=== PATIENT | male | born 1955 | race Caucasian/White ===

== ENCOUNTER 2018-01-25 10:00 | Emergency (ER) | payer MEDICARE, MEDICAID ==
[~2018-01-25] VITALS: Ht 177.8 cm; Wt 131.0 kg
[2018-01-25 10:00] VITALS: BP 128/66; PULSE 93; RESP 16; TEMP 97.8; O2SAT 96
[2018-01-25 10:22] LABS: BILIRUBIN, URINE NEG (NEG); BLOOD, URINE MOD (NEG); GLUCOSE,URINE NEG (NEG); KETONE, URINE NEG (NEG); NITRITE,URINE NEG (NEG); PH, URINE 5.5 (5.0-8.5); URINE COLOR YELLOW (YELLW/STRAW); URINE LEUKOCYTE ESTERASE TRACE (NEG)
[2018-01-25 10:28] LABS: AMORPHOUS SEDIMENT, URINE FEW; SQUAMOUS EPITHELIAL CELL URINE 0-5 /hpf (0-5); WBC, URINE 0-2 /hpf (0-5)
[2018-01-25] MEDS ORDERED: SODIUM CHLORIDE 0.9% FLUSH 10 ML FLUSH IV FLUSH PRN (10:30)
[2018-01-25] MEDS ORDERED: LOMO2.5T PO (10:33)
[2018-01-25] MEDS ORDERED: RANI300C PO (10:33)
[2018-01-25] MEDS ORDERED: CYCL10TA PO (10:33)
[2018-01-25] MEDS ORDERED: HYDR-3583 PO (10:33)
[2018-01-25] MEDS ORDERED: OMEP40CA2 (10:33)
[2018-01-25] MEDS ORDERED: DULO1CAP3 PO (10:33)
[2018-01-25] MEDS ORDERED: LISI-515 PO (10:33)
[2018-01-25] MEDS ORDERED: BUPR300T PO (10:33)
[2018-01-25] MEDS ORDERED: NITR0.4S SL (10:33)
[2018-01-25] MEDS ORDERED: ABIL10TA8 PO (10:33)
[2018-01-25] MEDS ORDERED: GABA300C5 PO (10:33)
[2018-01-25] MEDS ORDERED: RANI300T PO (10:33)
[2018-01-25 10:54] VITALS: O2SAT 98
[2018-01-25 11:15] LABS: CALCIUM 8.6 MG/DL (8.5-10.1)
[2018-01-25 11:17] LABS: PROTHROMBIN TIME - PATIENT 10.1 SEC (9.8-11.6)
[2018-01-25 11:19] LABS: CREATININE 1.1 MG/DL (0.60-1.30)
--- NOTE | 2018-01-25 11:20 | RADRPT ---
EXAM DATE/TIME: 01/25/2018 10:36 [facility] COMPARISON: No previous studies available for comparison. INDICATIONS : Urinary urgency, incontinence, hematuria. ORAL CONTRAST: No oral contrast ingested. RADIATION DOSE: 30.79 CTDIvol (mGy) ; Patient body habitus MEDICAL HISTORY : Gastric bypass x 2 SURGICAL HISTORY : Lumbar, and orthopedic ENCOUNTER: Initial ACUITY: 2 days PAIN SCALE: 3/10 LOCATION: abdomen TECHNIQUE: Volumetric scanning of the abdomen and pelvis was performed. Using automated exposure control and ad justment of the mA and/or kV according to patient size, radiation dose was kept as low as reasonably achievable to obtain optimal diagnostic quality images. DICOM format image data is available electro nically for review and comparison. FINDINGS: LOWER LUNGS: The visualized lower lungs are clear. LIVER: Homogeneous density without lesion. There is no dilation of the biliary tree. No calcified gallston es. SPLEEN: Normal size without lesion. PANCREAS: Within normal limits. KIDNEYS: Normal in size and shape. There is no mass, stone, or hydronephrosis. ADRENAL GLANDS: Within normal limits. VASCULAR: There is no aortic aneurysm. BOWEL/MESENTERY: Post surgical clips are identified in the left upper quadrant of the abdomen in the gastric region. I ntestinal structures are otherwise unremarkable. There is no evidence of ileus or acute inflammatory changes. ABDOMINAL WALL: Within normal limits. RETROPERITONEUM: There is no lymphadenopathy. BLADDER: No wall thickening or mass. REPRODUCTIVE: Within normal limits. INGUINAL: There is no lymphadenopathy or hernia. MUSCULOSKELETAL: Post surgical changes following lower lumbar fusion are noted. CONCLUSION: 1. No evidence of nephrolithiasis or obstructive uropathy. 2. No evidence of suspicious renal masses. 3. Postsurgical changes in the left upper quadrant of the abdomen and following lumbar fusion. Karl Dominguez MD on January 25, 2018 at 11:14 Board Certified Radiologist. This report was verified electronically.
[2018-01-25 11:56] LABS: AUTOMATED NEUTROPHIL # 3.4 TH/MM3 (1.8-7.7); BASOPHIL # 0.1 TH/MM3 (0-0.2); BASOPHIL % 0.9 % (0.0-2.0); EOSINOPHIL # 0.2 TH/MM3 (0-0.4); EOSINOPHIL % 3.2 % (0.0-4.0); HEMATOCRIT 39.7 % (39.0-51.0); LYMPH % 31.1 % (9.0-44.0); LYMPHOCYTE # 1.9 TH/MM3 (1.0-4.8); MEAN CELL VOLUME 79.3 FL (80.0-100.0); MEAN CORPUSCULAR HEMOGLOBIN 25.9 PG (27.0-34.0); MEAN CORPUSCULAR HGB CONC 32.7 % (32.0-36.0); MONO % 7.4 % (0.0-8.0); MONOCYTE # 0.4 TH/MM3 (0-0.9); NEUT % 57.4 % (16.0-70.0); PLATELET COUNT 227 TH/MM3 (150-450); RED BLOOD COUNT 5.01 MIL/MM3 (4.50-5.90); RED CELL DISTRIBUTION WIDTH 15.1 % (11.6-17.2)
--- NOTE | 2018-01-25 12:12 | PD ---
HPI Chief Complaint: Complaint Time Seen by Provider: 10:29 Travel History International Travel<30 days: No Contact w/Intl Traveler<30days: No Traveled to known affect area: No History of Present Illness HPI 62-year-old male complains of hematuria. He denies symptoms consistent with acute anemia. He denies similar prior episodes. He traveled down to [place] for bike week, 21 hours total and had a fair amount of back pain on the way however blamed the car ride as the cause. Duration has been about 2 days. He denies flank pain at the time of ER evaluation. No dysuria reported. No fever nausea vomiting. No numbness tingling or weakening. PFSH Social History Tobacco Use: No (REPORTS CIGARS OCCASIONALLY) Allergies-Medications (Allergen,Severity, Reaction): Coded Allergies: Penicillins (Verified Allergy, Unknown, 01/25/18) codeine (Verified Allergy, Unknown, 01/25/18) morphine (Verified Allergy, Unknown, 01/25/18) Reported Meds & Prescriptions Reported Meds & Active Scripts Active Reported Hydrocodone-Acetaminophen 10-325 mg Tab 1 Tab PO Q4H PRN Abilify (Aripiprazole) 10 Mg Tab 5 Mg PO DAILY Omeprazole 40 Mg Cap 40 Mg BID Lomotil (Diphenoxylate-Atropine) 2.5-0.025 Mg Tab 1 Tab PO Q6H PRN Bupropion HCl ER 24 HR (Bupropion HCl) 300 Mg Tab 300 Mg PO DAILY Ranitidine (Ranitidine HCl) 300 Mg Tab 300 Mg PO HS Ranitidine (Ranitidine HCl) 300 Mg Cap 300 Mg PO DAILY Lisinopril 20 Mg Tab 20 Mg PO BID Duloxetine DR (Duloxetine HCl) 60 Mg Capdr 60 Mg PO BID Gabapentin 300 Mg Cap 300 Mg PO TID Nitrostat SL (Nitroglycerin) 0.4 Mg Subl 0.4 Mg SL DIRECTED PRN 1 tablet under the tongue as needed for chest pain. Repeat every 5 minutes for a total of 3 DOSES or call 911 if NO relief. Flexeril (Cyclobenzaprine HCl) 10 Mg Tab 10 Mg PO BID Review of Systems Except as stated in HPI: all other systems reviewed are Neg General / Constitutional: No: Fever Physical Exam Narrative GENERAL: 62-year-old male pleasant well-nourished well-developed GENITOURINARY: Glands and foreskin appear normal. Vital Signs Date Time Temp Pulse Resp B/P (MAP) Pulse Ox O2 Delivery O2 Flow Rate FiO2 01/25/18 10:54 98 Room Air 01/25/18 10:00 97.8 93 16 128/66 (86) 96 SKIN: Warm and dry. HEAD: Atraumatic. Normocephalic. EYES: Pupils equal and round. No scleral icterus. No injection or drainage. ENT: No nasal bleeding or discharge. Mucous membranes pink and moist. NECK: Trachea midline. No JVD. CARDIOVASCULAR: Regular rate and rhythm. RESPIRATORY: No accessory muscle use. Clear to auscultation. Breath sounds equal bilaterally. GASTROINTESTINAL: No flank tenderness percussion. Abdomen soft. MUSCULOSKELETAL: Extremities without clubbing, cyanosis, or edema. No obvious deformities. NEUROLOGICAL: Awake and alert. No obvious cranial nerve deficits. Motor grossly within normal limits. Five out of 5 muscle strength in the arms and legs. Normal speech. PSYCHIATRIC: Appropriate mood and affect; insight and judgment normal. Data Data Last Documented VS Vital Signs Date Time Temp Pulse Resp B/P (MAP) Pulse Ox O2 Delivery O2 Flow Rate FiO2 01/25/18 10:54 98 Room Air 01/25/18 10:00 97.8 93 16 128/66 (86) Vital signs reviewed Orders Orders Urinalysis - C+S If Indicated (01/25/18 10:02) Basic Metabolic Panel (Bmp) (01/25/18 10:29) Complete Blood Count With Diff (01/25/18 10:29) Prothrombin Time / Inr (Pt) (01/25/18 10:29) Act Partial Throm Time (Ptt) (01/25/18 10:29) Iv Access Insert/Monitor (01/25/18 10:29) Ecg Monitoring (01/25/18 10:29) Oximetry (01/25/18 10:29) Sodium Chloride 0.9% Flush (Ns Flush) (01/25/18 10:30) Ct Abd/Pel W/O Iv Contrast (01/25/18 10:29) Ed Discharge Order (01/25/18 12:06) Labs Laboratory Tests Test 01/25/18 10:15 01/25/18 10:54 Urine Collection Type CLEAN CATCH Urine Color YELLOW Urine Turbidity CLEAR Urine pH 5.5 Urine Specific [place] LESS/EQUAL 1.005 Urine Protein NEG mg/dL Urine Glucose (UA) NEG mg/dL Urine Ketones NEG mg/dL Urine Occult Blood MOD Urine Nitrite NEG Urine Bilirubin NEG Urine Urobilinogen 0.2 MG/DL Urine Leukocyte Esterase TRACE Urine RBC 4-9 /hpf Urine WBC 0-2 /hpf Urine Squamous Epithelial Cells 0-5 /hpf Urine Amorphous Sediment FEW Microscopic Urinalysis Comment CULT NOT INDICATED Urine Collection Time 1015 White Blood Count 6.0 TH/MM3 Red Blood Count 5.01 MIL/MM3 Hemoglobin 13.0 GM/DL Hematocrit 39.7 % Mean Corpuscular Volume 79.3 FL Mean Corpuscular Hemoglobin 25.9 PG Mean Corpuscular Hemoglobin Concent 32.7 % Red Cell Distribution Width 15.1 % Platelet Count 227 TH/MM3 Mean Platelet Volume 9.0 FL Neutrophils (%) (Auto) 57.4 % Lymphocytes (%) (Auto) 31.1 % Monocytes (%) (Auto) 7.4 % Eosinophils (%) (Auto) 3.2 % Basophils (%) (Auto) 0.9 % Neutrophils # (Auto) 3.4 TH/MM3 Lymphocytes # (Auto) 1.9 TH/MM3 Monocytes # (Auto) 0.4 TH/MM3 Eosinophils # (Auto) 0.2 TH/MM3 Basophils # (Auto) 0.1 TH/MM3 CBC Comment DIFF FINAL Differential Comment Prothrombin Time 10.1 SEC Prothromb Time International Ratio 1.0 RATIO Activated Partial Thromboplast Time 28.0 SEC Blood Urea Nitrogen 13 MG/DL Creatinine 1.10 MG/DL Random Glucose 116 MG/DL Calcium Level 8.6 MG/DL Sodium Level 137 MEQ/L Potassium Level 3.8 MEQ/L Chloride Level 104 MEQ/L Carbon Dioxide Level 26.0 MEQ/L Anion Gap 7 MEQ/L Estimat Glomerular Filtration Rate 68 ML/MIN [facility] Medical Decision Making Medical Screen Exam Complete: Yes Emergency Medical Condition: Yes Medical Record Reviewed: Yes Differential Diagnosis UTI, hematuria due to kidney stone, coagulopathy, neoplasia Narrative Course CBC & BMP Diagram 01/25/18 10:54 Calcium Level 8.6 Urinalysis shows hematuria without UTI Last Impressions Abdomen/Pelvis CT 01/25/18 1029 Signed Impressions: Service Date/Time: Thursday, January 25, 2018 10:36 - CONCLUSION: 1. No evidence of nephrolithiasis or obstructive uropathy. 2. No evidence of suspicious renal masses. 3. Postsurgical changes in the left upper quadrant of the abdomen and following lumbar fusion. Karl Dominguez MD We discussed possible etiologies of the hematuria. Of concern would be a neoplastic process. Pt verbalized agreement to head home with plan for urology evaluation there. Return precautions discussed. Diagnosis Primary Impression: Hematuria Qualified Codes: R31.9 - Hematuria, unspecified Referrals: Urologist 2 days H[address]ATURIA, CT, BLOODWORK NORMAL. UA SHOWS NO UTI JUST RBCS AND GROSS BLOOD Med/Other Pt SpecificInfo: No Change to Meds Disposition: 01 DISCHARGE HOME Condition: Stable Niels Escalante MD Jan 25, 2018 12:12
[2018-01-25 12:20] VITALS: BP 130/82
== END 2018-01-25 12:22 | disposition home or self-care (01) ==
LOC: PHED 10:00
DX: R31.9 Hematuria, unspecified (principal); M54.9 Dorsalgia, unspecified; Z72.0 Tobacco use
CPT/HCPCS: 74176; 80048; 81001; 85025; 85610; 85730; 99284